=== PATIENT | male | born 1965 | race Caucasian/White ===

== ENCOUNTER 2025-07-29 18:16 | Outpatient (REF) | payer MEDICAID, SELFPAY ==
[2025-07-30 09:34] LABS: PSA, Screening 13.4 ng/mL (<=3.5)
== END 2025-07-29 18:17 | disposition home or self-care (01) ==
LOC: LBN 18:16
PROVIDERS: PCP Specialist/Technologist Athletic Trainer; Visit Provider Nurse Practitioner Gerontology
DX: R97.20 Elevated prostate specific antigen [PSA] (principal); Z80.42 Family history of malignant neoplasm of prostate
CPT/HCPCS: 84153